=== PATIENT | female | born 1940 | race Caucasian/White ===

== ENCOUNTER → 2018-06-04 | Outpatient (CLI) | payer MEDICARE, BC ==
[~2018-06-04] MED LIST: DICL100G39 TOP; LISI-362 PO; NAPR220C12 PO; [UNRECOGNIZED DRUG - CODE] PO; [UNRECOGNIZED DRUG - OTHER] PO
[2018-06-04 13:30] LABS: PLATELET COUNT, AUTOMATED 245 K/uL (150-450)
== END ==
LOC: LAB 13:11
PROVIDERS: ATTEND Family Medicine
DX: I10 Essential (primary) hypertension (principal)
CPT/HCPCS: 36415; 82040; 82247; 82310; 82374; 82435; 82565; 82947; 84075; 84132; 84155; 84295; 84450; 84460; 84520; 85025